=== PATIENT | male | born 1975 | race Caucasian/White ===

== ENCOUNTER 2023-07-06 20:28 | Emergency (ER) | payer OTHER ==
[2023-07-06] MEDS ORDERED: TETRACAINE 0.5% STERI-UNIT SOL OP STA (20:51)
[2023-07-06] MEDS ORDERED: TETRACAINE 0.5% STERI-UNIT SOL OP ONE (20:51)
[2023-07-06] MEDS ORDERED: Fluor-I-Strip/Ful-Flo OP ONE ×2 (20:51)
[2023-07-06] MEDS ORDERED: Eye-Stream Solution ONE (20:51)
[2023-07-06] MEDS ORDERED: Eye-Stream Solution OP ONE (20:52)
[2023-07-06 20:54] VITALS: RESP 14; TEMP 97.6
[2023-07-06] MEDS ORDERED: Adacel Vial IM ONE ×2 (21:05→21:07)
[2023-07-06] MEDS ORDERED: Ocuflox OPHTHALMIC 5 ML OP STA (21:05)
[2023-07-06] MEDS ORDERED: Ocuflox OPHTHALMIC 5 ML OP ONE (21:07)
--- NOTE | 2023-07-06 21:12 | ERPHSYRPT ---
- History of Present Illness Time Seen by Provider: 07/06/23 20:30 Source: patient Exam Limitations: no limitations Patient Subjective Stated Complaint: pt states I think I have a eyelash in my eye Triage Nursing Assessment: pt ambulated into the er; pt is axo x4; c/o eye irritation; rt eye vision is 20/30; left eye vision 20/20; sclera is pink; clear discharge present to rt eye; skin PDW; no respiratory distress; hypertensive Physician History: 47-year-old male presented in the ER with chief complaint of right thigh irritation and redness since yesterday. Patient reports he was driving and felt something got into his eye probably eyelash, start itching and burning with watering. Denies no obvious visual disturbance. Reports it is more towards the medial side of the eyeball. Timing/Duration: yesterday, constant, sudden, worse Location: right eye Severity: moderate Associated Symptoms: itching, sensitivity to light, redness Allergies/Adverse Reactions: poison kanika extract Allergy (Verified 07/06/23 20:40) Hives Home Medications: Aspirin EC 81 mg [Ecotrin 81 mg] 81 mg PO DAILY 07/06/23 [History] Hx Tetanus, Diphtheria Vaccination/Date Given: Yes Hx Influenza Vaccination/Date Given: No Hx Pneumococcal Vaccination/Date Given: No Travel Risk - International Travel Have you traveled outside of the country in past 3 weeks: No - Coronavirus Screening Are you exhibiting any of the following symptoms?: No Close contact with a COVID-19 positive Pt in past 14-21 Days: No - Vaccine Status Have you recieved a Covid-19 vaccination: No - Review of Systems Constitutional: No Symptoms Eyes: Eye Pain, Eye Redness, Itchy, Photophobia, Tearing, Foreign Body Sensation Ears, Nose, & Throat: No Symptoms Respiratory: No Symptoms Cardiac: No Symptoms Abdominal/Gastrointestinal: No Symptoms Genitourinary Symptoms: No Symptoms Skin: No Symptoms Neurological: No Symptoms - Past Medical History Pertinent Past Medical History: Yes Cardiac History: Other Other Medical History: SVT - Past Surgical History Past Surgical History: Yes - Social History Smoking Status: Current every day smoker How long have you smoked: 37 years Exposure to second hand smoke: Yes Patient Lives Alone: No - Nursing Vital Signs Nursing Vital Signs: Initial Vital Signs Temperature 97.6 F 07/06/23 20:42 Pulse Rate 83 07/06/23 20:42 Respiratory Rate 14 07/06/23 20:42 Blood Pressure 194/121 07/06/23 20:42 O2 Sat by Pulse Oximetry 95 07/06/23 20:42 Pain Scale Pain Intensity 0 - Physical Exam General Appearance: no apparent distress Vision Acuity Degree Evaluation Phase: Uncorrected Vision Acuity Right Eye: 20/30 Vision Acuity Left Eye: 20/20 Eye Exam: right eye: conjunctival inflammation, corneal abrasion (Small abrasion at 3 o'clock position), left eye: normal inspection, bilateral eye: PERRL, EOMI Ears, Nose, Throat Exam: normal ENT inspection Neck Exam: normal inspection, non-tender, supple, full range of motion Respiratory Exam: normal breath sounds, lungs clear Cardiovascular Exam: regular rate/rhythm, normal heart sounds Extremity Exam: normal inspection, normal range of motion Neurologic: alert, oriented x 3, cooperative, 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, normal mood/affect Skin Exam: normal color SpO2 Interpretation: normal SpO2: 95 O2 Delivery: Room Air Procedures - Eye Procedure Time of Procedure: 21:10 Timeout: Performed Tetracaine Drops Administered: Yes Eye FB Removal: removal w/ cotton swab Remaining Material after FB Removal: other (Thread filament) Antibiotic Oinment/Drps Admin: right eye Ordered Tests: Medication Summary Discontinued Medications Generic Name Dose Route Start Last Admin Trade Name Ayanna PRN Reason Stop Dose Admin Clonidine 0.2 mg 07/06/23 21:23 07/06/23 21:26 Clonidine Hcl 0.1 Mg Tablet PO 07/06/23 21:24 0.2 mg STAT ONE Administration Clonidine Confirm 07/06/23 21:25 Clonidine Hcl 0.1 Mg Tablet Administered 07/06/23 21:26 Dose 0.2 mg .ROUTE .STK-MED ONE Diphtheria/Tetanus/Acell Pertussis 0.5 ml 07/06/23 21:05 07/06/23 21:08 Tdap --Diph,Pertuss(Acell),Tet Vac/Pf 0.5 Ml Vial IM 07/06/23 21:06 0.5 ml .ONCE ONE Administration Diphtheria/Tetanus/Acell Pertussis Confirm 07/06/23 21:07 Tdap --Diph,Pertuss(Acell),Tet Vac/Pf 0.5 Ml Vial Administered 07/06/23 21:08 Dose 0.5 ml IM .STK-MED ONE Eye Irrigation Solution 15 ml 07/06/23 20:52 07/06/23 21:02 Sodium/Potassium/Marvin/Magnesium 30 Ml Eye Wash OP 07/06/23 20:53 15 ml STAT ONE Administration Eye Irrigation Solution Confirm 07/06/23 20:51 Sodium/Potassium/Marvin/Magnesium 30 Ml Eye Wash Administered 07/06/23 20:52 Dose 30 ml .ROUTE .STK-MED ONE Fluorescein Sodium 1 mg 07/06/23 20:51 07/06/23 21:02 Fluorescein Sodium 1 Mg/Strip Strip OP 07/06/23 20:52 1 mg STAT ONE Administration Fluorescein Sodium Confirm 07/06/23 20:51 Fluorescein Sodium 1 Mg/Strip Strip Administered 07/06/23 20:52 Dose 1 mg OP .STK-MED ONE Ofloxacin 5 ml 07/06/23 21:05 07/06/23 21:08 Ofloxacin 0.3% Opth 5 Ml Eye Drops OP 07/06/23 21:06 5 ml ONCE STA Administration Ofloxacin Confirm 07/06/23 21:07 Ofloxacin 0.3% Opth 5 Ml Eye Drops Administered 07/06/23 21:08 Dose 5 ml OP .STK-MED ONE Tetracaine HCl 4 ml 07/06/23 20:51 07/06/23 21:02 Tetracaine Hcl/Pf 4 Ml Bottle OP 07/06/23 20:52 4 ml STAT STA Administration Tetracaine HCl Confirm 07/06/23 20:51 Tetracaine Hcl/Pf 4 Ml Bottle Administered 07/06/23 20:52 Dose 4 ml OP .STK-MED ONE - Progress Progress: improved Progress Note: 07/06/23 21:10 47-year-old is evaluated in the ER for right eye redness and foreign body sensation with itching and burning started yesterday while he was driving and felt something went in. He started rubbing, did eyewash at home but no significant relief. Has increased tearing. On exam he has conjunctival injection. Very small abrasion at 3 o'clock position with fluorescein uptake. Small cotton filament is removed with Q-tip. Patient feeling better on reevaluation. I will start him on ofloxacin eyedrops. Recommended outpatient ophthalmology/optometry follow-up tomorrow. Tetanus is updated. Discussed signs symptoms of worsening needing return to ER which he seems understanding. 07/06/23 21:50 patient blood pressure was elevated with no history of hypertension. Patient denies any headache, dizziness or lightheadedness. No chest pain palpitations or shortness of breath. He is given clonidine and it improved in 130s. Patient thinks is because of the pain he was having in the eye. I have offered him to go with prescription of clonidine to take as needed but he declined and would soon follow-up with primary care for reevaluation. Discussed signs symptoms of worsening/uncontrolled hypertension needing emergent attention which she seems understanding. Counseled pt/family regarding: diagnosis, need for follow-up Medical Desision Making - Risk of complications The pt has a mod risk of morbidity or mortality based on: Need for prescription drug management - Departure Departure Disposition: Home Clinical Impression: Corneal abrasion, Conjunctivitis, Elevated blood pressure reading without diagnosis of hypertension Condition: Stable Critical Care Time: No Referrals: RORO SCHMITT, RICKEY [NON-STAFF PHY W/O PRIVILEGES] - Follow up/PCP as directed (Tomorrow morning for reevaluation) Instructions: Corneal Abrasion (DC), Foreign Body in Eye (DC), High Blood Pressure ED Additional Instructions: Do not rub right eye. Take Tylenol/ibuprofen as needed. Follow-up with optometry/ophthalmology for reevaluation in the morning. Return to ER for worsening of redness, discharge, visual disturbance etc. Use eyedrops given to you while in the ER: Instill 1 to 2 drops in affected eye(s) every 2 to 4 hours for the first 2 days, then instill 1 to 2 drops 4 times daily for an additional 5 days.
[2023-07-06] MEDS ORDERED: CLONIDINE 0.1 MG TABLET PO ONE (21:23)
[2023-07-06] MEDS ORDERED: CLONIDINE 0.1 MG TABLET ONE (21:25)
[2023-07-06 21:43] VITALS: BP 131/73; PULSE 79
[2023-07-06 21:55] VITALS: O2SAT 95
== END 2023-07-06 21:50 | disposition home or self-care (01) ==
LOC: ED 20:28
DX: T15.01XA Foreign body in cornea, right eye, initial encounter (principal); H10.9 Unspecified conjunctivitis; R03.0 Elevated blood-pressure reading, without diagnosis of hypertension; H57.11 Ocular pain, right eye; Z28.310 Unvaccinated for COVID-19; Z72.0 Tobacco use; Z23 Encounter for immunization
CPT/HCPCS: 65220; 90471; 90715; 99282; A9270-GY